=== PATIENT | female | born 1990 | race Caucasian/White ===

== ENCOUNTER 2023-10-04 12:19 | Emergency (ER) | payer OTHER, SELFPAY ==
--- OUTSIDE RECORDS SUMMARY | 2023-10-04 12:23 | XMS REPORT | Continuity of Care Document ---
:1990 Author Organization [facility] t Address [address] [place] [address] Care Team Providers Name Role Phone MARGA COLÓN Primary Care Physician Unavailable Nik Rodas Attending Clinician Unavailable MARGA COLÓN Attending Clinician Unavailable MIKY CHESTER Attending Clinician Unavailable TOOTIE HECK Attending Clinician Unavailable CRYSTAL FABIAN Attending Clinician Unavailable LAB90 Attending Clinician Unavailable ANGEL LANDA Attending Clinician Unavailable CR CERNA I. Attending Clinician Unavailable TATIANA SENA Attending Clinician Unavailable Pranav Pena MD Attending Clinician PRANAV PENA Attending Clinician Unavailable JARON DLAEY Attending Clinician Unavailable MD LISSETTE Attending Clinician Unavailable Lilibeth Attending Clinician Unavailable LUCY NATH Attending Clinician Unavailable PROVIDER, VIDEOVISITNOW Attending Clinician Unavailable GUY KWAN Attending Clinician Unavailable JOSE ANGEL WAN Attending Clinician Unavailable LAB47 Attending Clinician Unavailable RYAN MAGANA Attending Clinician Unavailable Margaret Schaefer Attending Clinician [phone] Nik Rodas Attending Clinician [phone] Conchita Delaney Attending Clinician [phone] Fatou Attending Clinician Unavailable Michael Zuleta Attending Clinician Unavailable Susi Vera Attending Clinician [phone] Cate Randle Attending Clinician Unavailable Gustavo Richardson Attending Clinician [phone] Maria M Patrick Attending Clinician Unavailable Milvia Baird Attending Clinician Unavailable KIMMIE STARKS M.D. Attending Clinician Unavailable JOHN MORTENSEN NP Attending Clinician Unavailable JOSE RAUL RUTHERFORD M.D. Attending Clinician Unavailable NADEEM SMALLWOOD LCSW Attending Clinician Unavailable MICHAEL STYLES M.D. Attending Clinician Unavailable LUÍS DAVILA M.D.|PHD Attending Clinician Unavailable Nik Rodas Admitting Clinician Unavailable PRANAV PENA Admitting Clinician Unavailable Lilibeth Admitting Clinician Unavailable Fatou Admitting Clinician Unavailable KNOW, DOES_NOT Admitting Clinician Unavailable Susi Vera Unavailable [phone] Gustavo Rivas Unavailable [phone] Payers Payer Name Policy Type Policy Number Effective Date Expiration Date S ource [employer]ETNA [facility] 9 [id number] 2022 $30 [id number] BASIC 94 00:00:00 [employer]ET[employer] COMMERCIAL [id number] 2022 OUT OF NETWORK 00:00:00 [employer] [id number] [place] AETNA [id number] 2022 00:00:00 [employer] [place] [id number] [place] Problems Condition Condition Condition Status Onset Resolution Last Treating Co mments Source Name Details Category Date Date Treatment Clinician Date Prediabete Prediabete Disease Active K elsey s s 5-23 Seybold 00:00: - 00 Externa l Ankylosing Ankylosing Disease Active K elsey spondyliti spondyliti 2-08 Se ybold s of s of 00:00: - multiple multiple 00 Pipe And Test Supervisor a sites in sites in l spine spine Sjogren's Sjogren's Disease Active Nilesh sey syndrome syndrome 2-08 Seybol d with with 00:00: - keratoconj keratoconj 00 Ex terna unctivitis unctivitis l sicca sicca Attention Attention Disease Active Nilesh sey deficit deficit 2-08 Seybold hyperactiv hyperactiv 00:00: - ity ity 00 Externa disorder disorder l (ADHD), (ADHD), 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 Class 3 Class 3 Disease Active Valentina severe severe 2-08 Seybold obesity obesity 00:00: - due to due to 00 Externa excess excess l calories calories without without serious serious comorbidit comorbidit y with y with body mass body mass index index (BMI) of (BMI) of 45.0 to 45.0 to 49.9 in 49.9 in adult adult Class 2 Class 2 Disease Active Valentina obesity obesity 2-08 Seybold due to due to 00:00: - excess excess 00 Externa calories calories l without without serious serious comorbidit comorbidit y with y with body mass body mass index index (BMI) of (BMI) of 35.0 to 35.0 to 35.9 in 35.9 in adult adult Sj?marlon's Sj?marlon's Problem Active 2020-11 Azale a syndrome Syndrome 2-01 Orthop e 00:00: dic 00 Sports Medicin e Carpal Carpal Problem Active 2020-11 Ruth tunnel Tunnel 0-07 Orthope syndrome Syndrome 00:00: dic 00 Sports Medicin e Ganglion Ganglion Problem Active 2020-11 Azale a of wrist of Wrist 0-07 Orthop e 00:00: dic 00 Sports Medicin e Radial Radial Problem Active 2020-11 Ruth styloid Styloid 0-07 Orthope tenosynovi Tenosynovi 00:00: di c tis tis 00 Sports Medicin e Ankylosing Ankylosing Problem Active A zalea spondyliti Spondyliti 8-18 Or thope s s 00:00: dic 00 Sports Medicin e Inflammati Inflammati Problem Active Polly whitman on of on of 06-16 Orthope sacroiliac Sacroiliac 00:00: di c joint Joint 00 Sports Medicin e Lumbar Lumbar Problem Active Ruth spondylosi Spondylosi 7-16 Or thope s s 00:00: dic 00 Sports Medicin e Low back Low Back Problem Active Svitlanaomaira a pain Pain 7-16 Orthope 00:00: dic 00 Sports Medicin e Inflammato Inflammato Problem Active Polly whitman ry ry 7-15 Orthope polyarthro Polyarthro 00:00: di c michelle michelle 00 Sports Medicin e Preconcept Condition Active 2021-03-20 Chuy, [facility] ion 4- 23:31:11 Susi Communi counseling 00:00: ty 00 Health Vaginal Condition Active 2021-03-20 Chuy, [facility] odor 4- 23:31:11 Susi Communi 00:00: ty 00 Health ADHD, Condition Active 2021-03-18 Leoz-Karen [facility] UNSPECIFIE 3-03 15:48:40 zo, Comm uni D 00:00: Gustavo ty 00 Health PERSONALIT Condition Active 2021-03-18 Leoz-Karen [facility] Y 3-03 15:48:40 zo, Communi DISORDER, 00:00: Gustavo ty BORDERLINE 00 Health Severe Severe Disease Active Methodi persistent persistent 07-06 asthma asthma 00:00: Hospita with acute with acute 00 l exacerbati exacerbati on on Hypokalemi Hypokalemi Disease Active M ethodi a a 07-06 00:00: Hospita 00 l Lactic Lactic Disease Active Methodi acidosis acidosis 07-06 00:00: Hospita 00 l Leukocytos Leukocytos Disease Active M ethodi is is 07-06 00:00: Hospita 00 l Class 2 Class 2 Disease Active Methodi obesity in obesity in 07-06 adult adult 00:00: Hospita 00 l Hyperglyce Hyperglyce Disease Active M ethodi dali dali 07-06 00:00: Hospita 00 l History of History of Problem Resolve [facility] asthma asthma d Physici ans Panic Panic Problem Active [facility] attack attack Physici ans RACHEL RACHEL Problem Active UT (generaliz (generaliz Ph ysici ed anxiety ed anxiety an s disorder) disorder) Fatigue Fatigue Problem Active [facility] Morbid Morbid Problem Active [facility] obesity obesity Physici ans Hyperlipid Hyperlipid Problem Active U T emia emia Physici ans Morbid Morbid Problem Active [facility] obesity obesity Physici with body with body ans mass index mass index (BMI) of (BMI) of 40.0 to 40.0 to 44.9 in 44.9 in adult adult High High Problem Active UT cholestero cholestero Ph ysici l l ans Nexplanon Nexplanon Problem Active UT in place in place Physic i ans Bipolar Bipolar Problem Active [facility] affective affective Phys ici disorder, disorder, ans current current episode episode hypomanic hypomanic Allergies, Adverse Reactions, Alerts Allergy Allergy Status Severity Reaction(s) Onset Inactive Treating Comm ents Source Name Type Date Date Clinician Codeine Propensi Active Unknown - Univ ers ty to See comments 6-30 ity of adverse 00:00: [place] reaction 00 Medical s Branch Venlafax Propensi Active Hives Univer s ine ty to 6-30 ity of adverse 00:00: [place] reaction 00 Medical s Branch CODEINE DRUG Active Unknown-Cmnt Uni vers INGREDI 6-30 ity of 00:00: [place] 00 Medical Branch VENLAFAX DRUG Active Hives Univers INE INGREDI 6-30 ity of 00:00: [place] 00 Medical Branch Hydrocod Propensi Active Valentina one-Acet ty to 04-11 Seybold aminophe adverse 00:00: - n reaction 00 Externa s l Oxycodon Propensi Active Valentina e-Acetam ty to 04-11 Seybold inophen adverse 00:00: - reaction 00 Externa s l Oxycodon Propensi Active Other Valentina e ty to 05-20 reaction( Seybold adverse 00:00: s): - reaction 00 UNKNOWN Externa s l oxycodon DA Active U UNKNOWN [facility] 05-20 [place] 00:[facility]: [facility] 00 dic Hospita l Venlafax Propensi Active Hives 2020-11 Valentina paul ty to 0-28 Seybold adverse 00:00: - reaction 00 Externa s l Hydrocod Propensi Active Other Valentina young ty to 916 reaction( Seybold adverse 00:00: s): - reaction 00 UNKNOWN Externa s l codeine DA Active U [facility] 08-05 [place] 00:00: Orthope 00 dic Hospita l hydrocod DA Active U [facility] one 08-05 [place] 00:00: Orthope 00 dic Hospita l acetamin DA Active U [facility] ophen 08-05 [place] 00:00: Orthope 00 dic Hospita l codeine DA Active U UNKNOWN [facility] 08-05 [place] 00:00: Orthope 00 dic Hospita l hydrocod DA Active U UNKNOWN [facility] one 08-05 [place] 00:00: Orthope 00 dic Hospita l acetamin DA Active U UNKNOWN [facility] ophen 08-05 [place] 00:00: Orthope 00 dic Hospita l Vicodin Allergy Active Ruth to 7-15 Orthope substanc 00:00: dic e 00 Sports Medicin e Codeine Allergy Active Ruth to 7-15 Orthope substanc 00:00: dic e 00 Sports Medicin e Percocet Allergy Active Ruth to 7-15 Orthope substanc 00:00: dic e 00 Sports Medicin e VICODIN Drug Active High throat [facility] allergy Criticali closeshives 4-29 C ommuni (disorde ty 00:00: ty r) 00 Health PERCOCET Drug Active High severe [facility] allergy Criticali throat 4-29 Commun i (disorde ty closeshives 00:00: ty r) 00 Health CODEINE Drug Active High severe [facility] allergy Criticali throat 4-29 Commun i (disorde ty closeshives 00:00: ty r) 00 Health Codeine Propensi Active Escobar ty to 207 Health adverse 00:00: reaction 00 s to drug Oxycodon Propensi Active Escobar e-Acetam ty to 12-27 Health inophen adverse 00:00: reaction 00 s to drug Hydrocod Propensi Active Escobar one-Acet ty to 12-27 Health aminophe adverse 00:00: n reaction 00 s to drug Codeine Propensi Active Rash 2016-11 Other Valentina ty to 12-10 reaction( Seybold adverse 00:00: s): - reaction 00 Other: Externa s See l CommentsF kami effect Codeine Propensi Active Itching 2016-11 Method i ty to 12-10 st adverse 00:00: Hospita reaction 00 l s to drug Oxycodon Propensi Active Itching 2016-11 Metho di e-Acetam ty to 12-10 st inophen adverse 00:00: Hospita reaction 00 l s to drug Hydrocod Propensi Active 2016-11 Method i one-Acet ty to 12-10 st aminophe adverse 00:00: Hospita n reaction 00 l s to drug codeine drug Active [facility] allergy Physici ans Percocet drug Active UT TABS allergy Physici ans Vicodin drug Active UT TABS allergy Physici ans NO KNOWN Drug Active Univers ALLERGIE Class ity of [facility] Family History Family Member Diagnosis Comments Start Date Stop Date Source Unknown Family Family history of Maternal [facility] Member cardiovascular Relatives disease Unknown Family Family history of Maternal [facility] Member myocardial infarction Relatives Mother Family history of [facility] gallbladder disease Social History Social Habit Start Date Stop Date Quantity Comments Source History SDOH Alcohol Shireen ey Seybold Std Drinks - External History SDOH Alcohol Shireen ey Seybold Binge - External Gender identity Valentina Se ybold - External History SDOH Alcohol Shireen ey Seybold Frequency - External Sexual orientation [facility] History of tobacco Occasional tobacco Denominational use smoker Hospital Education 2022-12-28 2022-12-28 16 Valentina Seybold 00:00:00 00:00:00 - External Tobacco use and 2022-12-28 2022-12-28 Smokeless tobacco Ke andre Seybold exposure 00:00:00 00:00:00 non-user - External time of call 2021-05-14 2021-05-14 05/14/2021 10:59 [facility] 10:59:37 10:59:37 [facility] sexual orientation 2021-03-18 2021-03-18 Heterosexual Lega cy 15:07:59 15:07:59 [facility] social history 2021-03-18 2021-03-18 reviewed today [facility] reviewed E&M 15:07:59 15:07:59 [facility] social history E&M 2021-03-18 2021-03-18 since Leg acy 15:07:59 15:07:59 2016. Mother lives Commun ity in . Close to Health her. Mother is with step father, also good relationship, she has a half brother. 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 Was before until 2018live with , no chldren. 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 Sexual orientation: Heterosexual. patient considered 2021-03-18 2021-03-18 No Legacy to be homeless 15:07:59 15:07:59 [facility] condom use 2021-03-18 2021-03-18 Never [facility] 15:07:59 15:07:59 [facility] total number of 2021-03-18 2021-03-18 [facility] lifetime sexual 15:07:59 15:07:59 [facility] number of sexual 2021-03-18 2021-03-18 Legacy partners in last 15:07:59 15:07:59 Communit y year Health Ever had sexual 2021-03-18 2021-03-18 Yes Legacy intercourse? 15:07:59 15:07:59 [facility] PHQ2 Questionairre 2021-03-18 2021-03-18 [facility] Score 15:07:59 15:07:59 [facility] is there any chance 2021-03-18 2021-03-18 No [place] that you could be 15:07:59 15:07:59 Communi ty ? Health if the patient is 2021-03-18 2021-03-18 No Legacy using/has used a 15:07:59 15:07:59 Communit y vaping item, Health Current, Former, Never Used, Not asked drug use 2021-03-18 2021-03-18 Never [facility] 15:07:59 15:07:59 [facility] alcohol use 2021-03-18 2021-03-18 Never [facility] 15:07:59 15:07:59 [facility] drug use, illicit, 2021-01-20 2021-01-20 daily [facility] frequency 11:10:58 11:10:58 [facility] drug use, illicit, 2021-01-20 2021-01-20 marijuana [facility] drug of choice 11:10:58 11:10:58 [facility] family support 2021-01-20 2021-01-20 Mother lives in [place] 11:10:58 11:10:58 [place]. Close to her. [place] ty Mother is Health with step father, also good relationship, she has a half brother. 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 Was before until 2018 sex at 2021-01-20 2021-01-20 Female [facility] 11:10:58 11:10:58 [facility] home/family 2021-01-20 2021-01-20 live with , [place]er[place] y situation, 11:10:58 11:10:58 no chldren. 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 alcohol use, 2021-01-20 2021-01-20 holidays/special Legacy frequency 11:10:58 11:10:58 occasions only [facility] History of Social 2018-10-07 2018-10-[address] function 00:00:00 00:00:00 Hospital Alcohol intake 2018-07-06 2018-07-06 Current drinker of [facility] 00:00:00 00:00:00 alcohol (finding) Hospita l Alcohol Comment 2017-10-10 2017-10-10 social Denominational 00:00:00 00:00:00 Hospital Sex Ass[birth year] At [birth year] Denominational 00:00:00 00:00:00 Hospital Smoking Status Start Date Stop Date Source Current every day smoker [facility] Tobacco smoking consumption [facility] Medical unknown Branch Never smoked tobacco Valentina Quintanilla old - External Occasional tobacco smoker 2018-07-06 00:00:00 [facility] Medications Ordered Filled Start Stop Current Ordering Indication Dosage Frequency Signature Comments Components Source Medication Medication Date Date Medication? Clinician (SIG) Name Name Albuterol Yes 2{puff} Q.25D Inhale 2 Valentina HFA 108 (90 8-21 puffs into Se ybold Base) 14:41: the lungs - MCG/ACT IN 56 every 6 Pipe And Test Supervisor a AERS hours as l needed for shortness of breath. Amphetamine 2022-0 Yes [id number] 20mg Take 1 Valentina -Dextroamph 8-21 tablet (20 Se ybold etamine 20 00:00: mg total) - MG oral 00 by mouth 2 Pipe And Test Supervisor a Tablet times l daily. Norelgestro 2022-0 Yes 1{patch Place 1 Valentina min-Eth 7-24 } patch onto Seybol d Estradiol 00:00: the skin - 150-35 00 once a Externa MCG/24HR week (for l transdermal continuous PATCH therapy WEEKLY for menstrual irregulari ty) Cyclobenzap 2022-0 Yes [id number] 5mg Q.[id number] Take 1 Valentina rine HCl 5 7-24 [id number] tablet (5 Seybold MG oral 00:00: 3D mg total) - Tablet 00 by mouth 3 Externa times l daily as needed for muscle spasms Montelukast 2022-0 Yes [id number] 10mg Take 1 Valentina (SINGULAIR) 7-24 tablet (10 Se ybold 10 MG oral 00:00: mg total) - Tablet 00 by mouth Externa tablet nightly l Amphetamine 2022-0 2023- No [id number] 20mg Take 1 Valentina -Dextroamph 7-24 08-21 tablet (20 S eybold etamine 20 00:00: 00:00 mg total) - MG oral 00 :00 by mouth Externa Tablet daily l ibuprofen 2022-0 Yes [id number] 600mg Take 1 Univers 600 mg 6-30 [id number] tablet by ity of tablet 00:00: mouth [place] 00 every 6 Medical (six) Branch hours as needed for Pain (scale 4-6). Amphetamine 2022-0 Yes [id number] 20mg Take 1 Valentina -Dextroamph 6-20 tablet (20 Se ybold etamine 20 00:00: mg total) - MG oral 00 by mouth Externa Tablet daily l Norelgestro 2022-0 Yes 1{patch Place 1 Valentina min-Eth 5-30 } patch onto Seybol d Estradiol 00:00: the skin - 150-35 00 once a Externa MCG/24HR week (for l transdermal continuous PATCH therapy WEEKLY for menstrual irregulari ty) Ketorolac 2023-0 2023- No [id number] 60mg Shireen ey Tromethamin 04-11- Seybold e (TORADOL) 16:45: 16:39 - 60 mg/2 mL 00 :00 Externa l Ketorolac 2022- No [id number] 60mg 60 mg, Ke lsey Tromethamin 04-11 intramuscu S eybold e (TORADOL) 16:45: 16:39 lar, ONCE, - 60 mg/2 mL 00 :00 On Tue Externa 04/11/23 at l 1145, For 1 dose Amphetamine 2022- No 20mg Take 2 Nilesh sey -Dextroamph -11 04- tablets Seyb old etamine 10 14:44: 00:00 (20 mg - MG oral 13 :00 total) by Externa Tablet mouth l daily Amphetamine Yes 20mg Take 2 Shireen ey -Dextroamph 5-23 tablets Seybo ld etamine 10 11:28: (20 mg - MG oral 03 total) by Externa Tablet mouth l daily Amphetamine Yes [id number] 15mg Take 1 Valentina -Dextroamph 5-23 tablet (15 Se ybold etamine 15 00:00: mg total) - MG oral 00 by mouth Externa Tablet daily l Amphetamine 2022- No [id number] 20mg Take 1 Valentina -Dextroamph 5-23 -23 tablet (20 S eybold etamine 00:00: 00:00 mg total) - (ADDERALL, 00 :00 by mouth Exter na 20MG,) 20 daily l MG oral Tablet Montelukast Yes [id number] 10mg Take 1 Valentina (SINGULAIR) 5-08 tablet (10 Se ybold 10 MG oral 00:00: mg total) - Tablet 00 by mouth Externa tablet nightly l methylPREDN Yes [id number] Take 1 garrett Valentina ISolone 4 5-08 by mouth Seybol d MG oral 00:00: See Admin - Tablet 00 Instructio Externa Therapy ns Use as l Pack directed Albuterol Yes [id number] 2{puff} Q.25D Inhale 2 Valentina HFA 108 (90 5-08 puffs into Se ybold Base) 00:00: the lungs - MCG/ACT IN 00 every 6 Pipe And Test Supervisor a AERS hours as l needed for wheezing Montelukast 2022-0 Yes [id number] 10mg Take 1 Valentina (SINGULAIR) 5-08 tablet (10 Se ybold 10 MG oral 00:00: mg total) - Tablet 00 by mouth Externa tablet nightly l Albuterol 2022-0 Yes [id number] 2{puff} Q.25D Inhale 2 Valentina HFA 108 (90 5-08 puffs into Se ybold Base) 00:00: the lungs - MCG/ACT IN 00 every 6 Pipe And Test Supervisor a AERS hours as l needed for wheezing Norelgestro 2022-0 Yes 1{patch Place 1 Valentina min-Eth 5-08 } patch onto Seybol d Estradiol 00:00: the skin - 150-35 00 once a Externa MCG/24HR week l transdermal PATCH WEEKLY Montelukast 2022-0 Yes [id number] 10mg Take 1 Valentina (SINGULAIR) 5-08 tablet (10 Se ybold 10 MG oral 00:00: mg total) - Tablet 00 by mouth Externa tablet nightly l Norelgestro 2022-0 Yes 1{patch Place 1 Valentina min-Eth 5-08 } patch onto Seybol d Estradiol 00:00: the skin - 150-35 00 once a Externa MCG/24HR week l transdermal PATCH WEEKLY Montelukast 2022-0 Yes [id number] 10mg Take 1 Valentina (SINGULAIR) 5-08 tablet (10 Se ybold 10 MG oral 00:00: mg total) - Tablet 00 by mouth Externa tablet nightly l Norelgestro 2022-0 Yes 1{patch Place 1 Valentina min-Eth 5-08 } patch onto Seybol d Estradiol 00:00: the skin - 150-35 00 once a Externa MCG/24HR week l transdermal PATCH WEEKLY Montelukast 2022-0 Yes [id number] 10mg Take 1 Valentina (SINGULAIR) 5-08 tablet (10 Se ybold 10 MG oral 00:00: mg total) - Tablet 00 by mouth Externa tablet nightly l methylPREDN 2022-0 2023- No [id number] Take 1 garrett Valentina ISolone 4 5-08 05- by mouth Seybo ld MG oral 00:00: 00:00 See Admin - Tablet 00 :00 Instructio Externa Therapy ns Use as l Pack directed Albuterol 2022-0 3- No [id number] 2{puff} Q.25D Inhale 2 Valentina HFA 108 (90 03-27 puffs into S eybold Base) 00:00: 00:00 the lungs - MCG/ACT IN 00 :00 every 6 Pipe And Test Supervisor a AERS hours as l needed for wheezing Cyclobenzap 3-0 Yes [id number] 5mg Q.[id number] Take 1 Valentina rine HCl 5 4-13 [id number] tablet (5 Seybold MG oral 00:00: 3D mg total) - Tablet 00 by mouth 3 Externa times l daily as needed for muscle spasms Norethindro 3-0 Yes [id number] 1{tbl} Take 1 Valentina ne 4-13 tablet by Seybold Acet-Ethiny 00:00: mouth - l Est 00 daily Externa (Loestrin l 12/09, ,) 1-20 MG-MCG oral Tablet Cyclobenzap 2022-0 Yes [id number] 5mg Q.[id number] Take 1 Valentina rine HCl 5 4-13 [id number] tablet (5 Seybold MG oral 00:00: 3D mg total) - Tablet 00 by mouth 3 Externa times l daily as needed for muscle spasms Cyclobenzap 2023-0 Yes [id number] 5mg Q.[id number] Take 1 Valentina rine HCl 5 4-13 [id number] tablet (5 Seybold MG oral 00:00: 3D mg total) - Tablet 00 by mouth 3 Externa times l daily as needed for muscle spasms Cyclobenzap 2023-0 Yes [id number] 5mg Q.[id number] Take 1 Valentina rine HCl 5 4-13 [id number] tablet (5 Seybold MG oral 00:00: 3D mg total) - Tablet 00 by mouth 3 Externa times l daily as needed for muscle spasms Cyclobenzap 2023-0 Yes [id number] 5mg Q.[id number] Take 1 Valentina rine HCl 5 4-13 [id number] tablet (5 Seybold MG oral 00:00: 3D mg total) - Tablet 00 by mouth 3 Externa times l daily as needed for muscle spasms Cyclobenzap 2023-0 Yes [id number] 5mg Q.[id number] Take 1 Valentina rine HCl 5 4-13 [id number] tablet (5 Seybold MG oral 00:00: 3D mg total) - Tablet 00 by mouth 3 Externa times l daily as needed for muscle spasms Norethindro 2023-0 Yes [id number] 1{tbl} Take 1 Valentina ne 4-13 tablet by Seybold Acet-Ethiny 00:00: mouth - l Est 00 daily Externa (Loestrin l ,) 1-20 MG-MCG oral Tablet Cyclobenzap 3-0 Yes [id number] 5mg Q.[id number] Take 1 Valentina reynae HCl 5 4-13 [id number] tablet (5 Seybold MG oral 00:00: 3D mg total) - Tablet 00 by mouth 3 Externa times l daily as needed for muscle spasms Norethindro 2023-0 Yes [id number] 1{tbl} Take 1 Valentina engle 4-13 tablet by Seybold Acet-Ethiny 00:00: mouth - l Est 00 daily Externa (Loestrin l ,) 1-20 MG-MCG oral Tablet Norethindro 3-0 2023- No [id number] 1{tbl} Take 1 Valentina engle 4-13 05-08 tablet by Seybold Acet-Ethiny 00:00: 00:00 mouth - l Est 00 :00 daily Externa (Loestrin l ,) 1-20 MG-MCG oral Tablet Secukinumab 3-0 Yes [id number] Inject K elsey (Cosentyx 4-03 150mg q Seybold Sensoready 00:00: week x 5 - Pen) 150 00 weeks, Externa MG/ML then q 4 l subcutaneou weeks s Solution after that Auto-inject or Secukinumab 2022-0 Yes [id number] Inject K elsey (Cosentyx 4-03 150mg q Seybold Sensoready 00:00: week x 5 - Pen) 150 00 weeks, Externa MG/ML then q 4 l subcutaneou weeks s Solution after that Auto-inject or Secukinumab 2023-0 Yes [id number] Inject Marissa branch (Cosentyx 4-03 150mg q Seybold Sensoready 00:00: week x 5 - Pen) 150 00 weeks, Externa MG/ML then q 4 l subcutaneou weeks s Solution after that Auto-inject or Secukinumab 2023-0 Yes [id number] Inject Marissa branch (Cosentyx 4-03 150mg q Seybold Sensoready 00:00: week x 5 - Pen) 150 00 weeks, Externa MG/ML then q 4 l subcutaneou weeks s Solution after that Auto-inject or Secukinumab 2023-0 Yes [id number] Inject Marissa branch (Cosentyx 4-03 150mg q Seybold Sensoready 00:00: week x 5 - Pen) 150 00 weeks, Externa MG/ML then q 4 l subcutaneou weeks s Solution after that Auto-inject or Secukinumab 2023-0 Yes [id number] Inject Marissa branch (Cosentyx 4-03 150mg q Seybold Sensoready 00:00: week x 5 - Pen) 150 00 weeks, Externa MG/ML then q 4 l subcutaneou weeks s Solution after that Auto-inject or Secukinumab 2023-0 Yes [id number] Inject Marissa branch (Cosentyx 4-03 150mg q Seybold Sensoready 00:00: week x 5 - Pen) 150 00 weeks, Externa MG/ML then q 4 l subcutaneou weeks s Solution after that Auto-inject or Secukinumab 2023-0 Yes [id number] Inject Marissa branch (Cosentyx 4-03 150mg q Seybold Sensoready 00:00: week x 5 - Pen) 150 00 weeks, Externa MG/ML then q 4 l subcutaneou weeks s Solution after that Auto-inject or Ketorolac 2022-0 3- No [id number] 60mg Shireen ey Tromethamin 01-10 Seybold e (TORADOL) 22:00: 22:06 - 60 mg/2 mL 00 :00 Externa l Ketorolac 202-0 2022- No [id number] 60mg 60 mg, Ke lsey Tromethamin 01-10 intramuscu S eybold e (TORADOL) 22:00: 22:06 lar, ONCE, - 60 mg/2 mL 00 :00 On Tue Externa 01/10/23 at l 1600, For 1 dose Amphetamine 2022-0 Yes 10mg Take 10 mg Valentina -Dextroamph 2-21 by mouth Seyb old etamine 10 15:32: daily - MG oral 43 Externa Tablet l Amphetamine 2022-0 Yes 10mg Take 10 mg Valentina -Dextroamph 2-21 by mouth Seyb old etamine 10 15:32: daily - MG oral 43 Externa Tablet l Amphetamine 2022-0 Yes 10mg Take 10 mg Valentina -Dextroamph 2-21 by mouth Seyb old etamine 10 15:32: daily - MG oral 43 Externa Tablet l Amphetamine 2022-0 Yes 10mg Take 10 mg Valentina -Dextroamph 2-21 by mouth Seyb old etamine 10 15:32: daily - MG oral 43 Externa Tablet l Amphetamine 2022-0 Yes 10mg Take 10 mg Valentina -Dextroamph 2-21 by mouth yb old etamine 10 15:32: daily - MG oral 43 Externa Tablet l Cyclobenzap 2022-0 Yes [id number] 5mg [id number] Take 1 Valentina rine HCl 5 2-21 [id number] tablet (5 Seybold MG oral 00:00: 3D mg total) - Tablet 00 by mouth 3 Externa times l daily as needed for muscle spasms Amphetamine 2022-0 Yes 10mg Take 10 mg Valentina -Dextroamph 2-08 by mouth yb old etamine 10 09:42: daily - MG oral 50 Externa Tablet l Amphetamine 2022-0 Yes 10mg Take 10 mg Valentina -Dextroamph 2-08 by mouth Seyb old etamine 10 09:42: daily - MG oral 50 Externa Tablet l Amphetamine 3-0 2023- No 20mg Take 20 mg Valentina -Dextroamph 2-08 02-08 by mouth Sey bold etamine 20 09:42: 00:00 daily PT - MG oral 37 :00 TAKES HALF [employer] a Tablet THE TABLET l ONCE A DAY Humira Pen 2022-0 Yes .4{each Inject 0.4 Valentina 40 MG/0.4ML 12-12 } each into Sey bold subcutaneou 00:00: the skin - s 00 once a Externa Pen-injecto month l r Kit (Citrate-fr ee) Humira Pen Yes .4{each Inject 0.4 Valentina 40 MG/0.4ML 1-23 } each into Sey bold subcutaneou 00:00: the skin - s 00 once a Externa Pen-injecto month l r Kit (Citrate-fr ee) Humira Pen Yes .4{each Inject 0.4 Valentina 40 MG/0.4ML 1-23 } each into Sey bold subcutaneou 00:00: the skin - s 00 every Externa Pen-injecto other week l r Kit (Citrate-fr ee) Humira(CF) Humira(CF) 2021- No Humira(CF) Ruth Pen 40 Pen 40 8- 08-14 Pen 40 [facility] mg/0.4 mL mg/0.4 mL 00:00: 00:00 mg/0.4 mL dic subcutaneou subcutaneou 00 :00 subcutaneo Sports s kit s kit us kit Medicin Inject 1 Inject 1 Inject 1 e pen pen pen injector injector injector subcutaneou subcutaneou subcutaneo sly as sly as usly as directed directed directed Inject 1 Inject 1 Inject 1 pen pen pen injector SQ injector SQ injector every other every other SQ every week week other week Humira(CF) Humira(CF) 2021- No Humira(CF) Ruth Pen 40 Pen 40 818 08-14 Pen 40 Orth[facility] mg/0.4 mL mg/0.4 mL 00:00: 00:00 mg/0.4 mL dic subcutaneou subcutaneou 00 :00 subcutaneo Sports s kit s kit us kit Medicin Inject 1 Inject 1 Inject 1 e pen pen pen injector injector injector subcutaneou subcutaneou subcutaneo sly as sly as usly as directed directed directed Inject 1 Inject 1 Inject 1 pen pen pen injector SQ injector SQ injector every other every other SQ every week week other week Humira(CF) Humira(CF) 2021- No Humira(CF) Ruth Pen 40 Pen 40 8-18 08-14 Pen 40 [facility] mg/0.4 mL mg/0.4 mL 00:00: 00:00 mg/0.4 mL dic subcutaneou subcutaneou 00 :00 subcutaneo Sports s kit s kit us kit Medicin Inject 1 Inject 1 Inject 1 e pen pen pen injector injector injector subcutaneou subcutaneou subcutaneo sly as sly as usly as directed directed directed Inject 1 Inject 1 Inject 1 pen pen pen injector SQ injector SQ injector every other every other SQ every week week other week (METRONIDAZ Yes Susi 1 2xD 1 tablet [facility]) 500 MG 502 Speed by mouth C ommuni TABS 00:00: twice ty 00 daily for Health 7 days ALBUTERAL Yes as needed [facility] INHALOR 03-18 Communi 00:00: ty 00 Health PROZAC 40MG Yes 1 a day [facility] 03-18 [facility] 00:00: ty 00 Health ADDERAL IR Yes 1 a day Lega cy 20 MG 03-18 Communi 00:00: ty 00 Health ADDERALL Yes 1 a day [facility] EXTENDED 03-18 [facility]i RELEASE 20 00:00: ty MG 00 Health traZODone Yes 100mg QD Take 100 Met [facility] (DESYREL) 8-[address] 100 MG 13:48: mouth [facility]osp[facility] tablet 54 nightly. l FLUoxetine Yes 40mg QD Take 40 mg M ethodi (PROzac) 40 8-[address] MG capsule 13:48: daily. Hospi ta 54 l carisoprodo Yes 350mg Take 350 M ethodi l (SOMA) 8-[address] 350 MG 13:48: mouth. Hospita tablet 54 l diazePAM Yes 10mg Q8H Take 10 mg Met [facility] (VALIUM) 5 8-[address] MG tablet 13:48: every 8 Hospi ta 54 (eight) l hours as needed for anxiety. ALPRAZolam ALPRAZolam 2016-11 Yes MOHAMMED 1 Q0.5D TAKE 1 UT 1 MG Oral 1 MG Oral 2-22 AHMED M.D. TABLET Physici Tablet Tablet 00:00: TWICE ans 00 DAILY ALPRAZolam ALPRAZolam 2016-11 Yes MOHAMMED TAKE 1 UT 0.5 MG Oral 0.5 MG Oral 2- AHMED M.D. TABLET Physici Tablet Tablet 00:00: DAILY ans 00 NEEDED FOR BREAK THROUGH ANXIETY ONLY busPIRone busPIRone Yes MOHAMMED Q0.3333D TAKE 1 UT HCl - 10 MG HCl - 10 MG 6- AHMED M.D. TABLET 3 Physici Oral Tablet Oral Tablet 00:00: TIMES ans 00 DAILY. QUEtiapine QUEtiapine Yes MOHAMMED TAKE 1 UT Fumarate Fumarate 5-09 AHMED M.D. TABLET BY Physici 300 MG Oral 300 MG Oral 00:00: MOUTH AT ans Tablet Tablet 00 BEDTIME Adderall XR Adderall XR No Adderall Ruth 20 mg 20 mg XR 20 mg [facility] capsule,ext capsule,ext capsule,ex dic ended ended tended Sports release release release Medici n TAKE 1 TAKE 1 TAKE 1 e CAPSULE BY CAPSULE BY CAPSULE BY MOUTH DAILY MOUTH DAILY MOUTH DAILY dextroamphe dextroamphe No dextroamph Ruth tamine-amph tamine-amph etamine-am Orthope etamine 20 etamine 20 phetamine dic mg tablet mg tablet 20 mg Spor ts TAKE 1 TAKE 1 tablet Medicin TABLET BY TABLET BY TAKE 1 e MOUTH TWICE MOUTH TWICE TABLET BY DAILY DAILY MOUTH TWICE DAILY diazepam 10 diazepam 10 No diazepam Ruth mg tablet mg tablet 10 mg Orth ope tablet dic Sports Medicin e meloxicam meloxicam No meloxicam Ruth 7.5 mg 7.5 mg 7.5 mg Orth[facility] tablet TAKE tablet TAKE tablet dic 1 TABLET BY 1 TABLET BY TAKE 1 Sports MOUTH TWICE MOUTH TWICE TABLET BY Medicin DAILY DAILY MOUTH e TWICE DAILY montelukast montelukast No montelukas Ruth 10 mg 10 mg t 10 mg Orth[facility] tablet tablet tablet dic Sports Medicin e prednisolon prednisolon No prednisolo Ruth e acetate 1 e acetate 1 ne acetate Orthope % eye % eye 1 % eye dic drops,suspe drops,suspe drops,susp Sports nsion nsion ension Medicin e Symbicort Symbicort No Symbicort Ruth 160 mcg-4.5 160 mcg-4.5 160 O rthope mcg/actuati mcg/actuati mcg-4.5 dic on HFA on HFA mcg/actuat Sport s aerosol aerosol ion HFA Medici n inhaler inhaler aerosol e inhaler tizanidine tizanidine No tizanidine Ruth 4 mg tablet 4 mg tablet 4 mg O rthope tablet dic Sports Medicin e tramadol 50 tramadol 50 No tramadol Ruth mg tablet mg tablet 50 mg Orth ope TAKE 1 TAKE 1 tablet dic TABLET BY TABLET BY TAKE 1 Spo rts MOUTH FOUR MOUTH FOUR TABLET BY Medicin TIMES DAILY TIMES DAILY MOUTH FOUR e NEEDED NEEDED TIMES FOR BACK FOR BACK DAILY PAIN PAIN NEEDED FOR BACK PAIN Adderall XR Adderall XR No Adderall Ruth 20 mg 20 mg XR 20 mg Orth[facility] capsule,ext capsule,ext capsule,ex dic ended ended tended Sports release release release Medici n TAKE 1 TAKE 1 TAKE 1 e CAPSULE BY CAPSULE BY CAPSULE BY MOUTH DAILY MOUTH DAILY MOUTH DAILY dextroamphe dextroamphe No dextroamph Ruth tamine-amph tamine-amph etamine-am Orthope etamine 20 etamine 20 phetamine dic mg tablet mg tablet 20 mg Spor ts TAKE 1 TAKE 1 tablet Medicin TABLET BY TABLET BY TAKE 1 e MOUTH TWICE MOUTH TWICE TABLET BY DAILY DAILY MOUTH TWICE DAILY diazepam 10 diazepam 10 No diazepam Ruth mg tablet mg tablet 10 mg Orth ope tablet dic Sports Medicin e meloxicam meloxicam No meloxicam Ruth 7.5 mg 7.5 mg 7.5 mg Orth[facility] tablet TAKE tablet TAKE tablet dic 1 TABLET BY 1 TABLET BY TAKE 1 Sports MOUTH TWICE MOUTH TWICE TABLET BY Medicin DAILY DAILY MOUTH e TWICE DAILY montelukast montelukast No montelukas Ruth 10 mg 10 mg t 10 mg Orth[facility] tablet tablet tablet dic Sports Medicin e prednisolon prednisolon No prednisolo Ruth e acetate 1 e acetate 1 ne acetate Orth[facility] % eye % eye 1 % eye dic drops,suspe drops,suspe drops,susp Sports nsion nsion ension Medicin e Symbicort Symbicort No Symbicort Ruth 160 mcg-4.5 160 mcg-4.5 160 O rthope mcg/actuati mcg/actuati mcg-4.5 dic on HFA on HFA mcg/actuat Sport s aerosol aerosol ion HFA Medici n inhaler inhaler aerosol e inhaler tizanidine tizanidine No tizanidine Ruth 4 mg tablet 4 mg tablet 4 mg O rthope tablet dic Sports Medicin e tramadol 50 tramadol 50 No tramadol Ruth mg tablet mg tablet 50 mg Orth ope TAKE 1 TAKE 1 tablet dic TABLET BY TABLET BY TAKE 1 Spo rts MOUTH FOUR MOUTH FOUR TABLET BY Medicin TIMES DAILY TIMES DAILY MOUTH FOUR e NEEDED NEEDED TIMES FOR BACK FOR BACK DAILY PAIN PAIN NEEDED FOR BACK PAIN Adderall XR Adderall XR No Adderall Ruth 20 mg 20 mg XR 20 mg Orth[facility] capsule,ext capsule,ext capsule,ex dic ended ended tended Sports release release release Medici n TAKE 1 TAKE 1 TAKE 1 e CAPSULE BY CAPSULE BY CAPSULE BY MOUTH DAILY MOUTH DAILY MOUTH DAILY dextroamphe dextroamphe No dextroamph Ruth tamine-amph tamine-amph etamine-am Orthope etamine 20 etamine 20 phetamine dic mg tablet mg tablet 20 mg Spor ts TAKE 1 TAKE 1 tablet Medicin TABLET BY TABLET BY TAKE 1 e MOUTH TWICE MOUTH TWICE TABLET BY DAILY DAILY MOUTH TWICE DAILY diazepam 10 diazepam 10 No diazepam Ruth mg tablet mg tablet 10 mg Orth ope tablet dic Sports Medicin e meloxicam meloxicam No meloxicam Ruth 7.5 mg 7.5 mg 7.5 mg Orth[facility] tablet TAKE tablet TAKE tablet dic 1 TABLET BY 1 TABLET BY TAKE 1 Sports MOUTH TWICE MOUTH TWICE TABLET BY Medicin DAILY DAILY MOUTH e TWICE DAILY montelukast montelukast No montelukas Ruth 10 mg 10 mg t 10 mg Orthope tablet tablet tablet dic Sports Medicin e prednisolon prednisolon No prednisolo Ruth e acetate 1 e acetate 1 ne acetate Orthope % eye % eye 1 % eye dic drops,suspe drops,suspe drops,susp Sports nsion nsion ension Medicin e No Aza ruddy Vitamins Vitamins Vitamins Ort hope dic Sports Medicin e Symbicort Symbicort No Symbicort Ruth 160 mcg-4.5 160 mcg-4.5 160 O rthope mcg/actuati mcg/actuati mcg-4.5 dic on HFA on HFA mcg/actuat Sport s aerosol aerosol ion HFA Medici n inhaler inhaler aerosol e inhaler tizanidine tizanidine No tizanidine Ruth 4 mg tablet 4 mg tablet 4 mg O rthope tablet dic Sports Medicin e tramadol 50 tramadol 50 No tramadol Ruth mg tablet mg tablet 50 mg Orth ope TAKE 1 TAKE 1 tablet dic TABLET BY TABLET BY TAKE 1 Spo rts MOUTH FOUR MOUTH FOUR TABLET BY Medicin TIMES DAILY TIMES DAILY MOUTH FOUR e NEEDED NEEDED TIMES FOR BACK FOR BACK DAILY PAIN PAIN NEEDED FOR BACK PAIN Vital Signs Vital Name Observation Time Observation Value Comments Source Systolic blood 2023-07-10 140 mm[Hg] Valentina Horn d - pressure 19:10:00 External Diastolic blood 2023-07-10 85 mm[Hg] Valentina Nava ld - pressure 19:10:00 External Heart rate 2023-07-10 73 /min Valentina Guajardo - 19:10:00 External Body temperature 2023-07-10 36.61 Joanne Valentina Quintanilla old - 19:10:00 External Respiratory rate 2023-07-10 15 /min Valentina Quintanilla [facility] - 19:10:00 External Body height 2023-07-10 165.1 cm Valentina Guajardo - 19:10:00 External Body weight 2023-07-10 97.977 kg Valentina Guajardo - 19:10:00 External BMI 2023-07-10 35.94 kg/m2 Valentina Guajardo - 19:10:00 External Oxygen saturation 2023-07-10 99 /min Valentina Gordon [facility] - in Arterial blood 19:10:00 External by Pulse oximetry Systolic blood 2023-05-20 189 mm[Hg] erp aware, pt [place] [facility] f pressure 04:40:00 reports pain, [facility] denies ordered Branch medications at this time Diastolic blood 2023-05-20 112 mm[Hg] erp aware, pt [facility] pressure 04:40:00 reports pain, [facility] denies ordered Branch medications at this time Heart rate 2023-05-20 92 /min [facility] 04:40:00 [facility] Respiratory rate 2023-05-20 18 /min [facility] 04:40:00 [facility] Oxygen saturation 2023-05-20 94 /min University in Arterial blood 04:40:00 [facility] lo by Pulse oximetry Branch Body temperature 2023-05-20 37.22 Jo[facility] 01:46:00 [facility] Body height 2023-05-20 165.1 cm [facility] :46:00 [facility] Body weight 2023-05-20 107.502 kg [facility] :46:00 [facility] BMI 2023-05-20 39.44 kg/m2 [facility] :46:00 [facility] Systolic blood 2023-05-19 132 mm[Hg] Valentina Seybol d - pressure 20:20:00 External Diastolic blood 2023-05-19 80 mm[Hg] Valentina Seybo ld - pressure 20:20:00 External Heart rate 2023-05-19 78 /min Valentina Seybold - 20:20:00 External Body height 2023-05-19 165.1 cm Valentina Seybold - 20:20:00 External Body weight 2023-05-19 107.502 kg Valentina Seybold - 20:20:00 External BMI 2023-05-19 39.44 kg/m2 Valentina Seybold - 20:20:00 External Systolic blood 2023-04-11 167 mm[Hg] Valentina Seybol d - pressure 19:38:00 External Diastolic blood 2023-04-11 105 mm[Hg] Valentina Seybo ld - pressure 19:38:00 External Heart rate 2023-04-11 97 /min Valentina Seybold - 19:38:00 External Body temperature 2023-04-11 36.56 Joanne Valentina Acevesyb old - 19:38:00 External Respiratory rate 2023-04-11 19 /min Valentina Acevesyb old - 19:38:00 External Body height 2023-04-11 167.6 cm Valentina Seybold - 19:38:00 External Body weight 2023-04-11 109.77 kg Valentina Seybold - 19:38:00 External BMI 2023-04-11 39.06 kg/m2 Valentina Seybold - 19:38:00 External Oxygen saturation 2023-04-11 99 /min Valentina Gordon bold - in Arterial blood 19:38:00 External by Pulse oximetry Systolic blood 2023-04-11 148 mm[Hg] Valentina Seybol d - pressure 16:40:00 External Diastolic blood 2023-04-11 94 mm[Hg] Valentian Seybo ld - pressure 16:40:00 External Heart rate 2023-04-11 84 /min Valentina Seybold - 16:40:00 External Respiratory rate 2023-04-11 16 /min Valentina Seyb old - 16:40:00 External Body height 2023-04-11 167.6 cm Valentina Acevesybold - 16:40:00 External Body weight 2023-04-11 109.77 kg Valentina Acevesybold - 16:40:00 External BMI 2023-04-11 39.06 kg/m2 Valentina Seybold - 16:40:00 External Systolic blood 2023-01-10 118 mm[Hg] Valentina Seybol d - pressure 21:30:00 External Diastolic blood 2023-01-10 78 mm[Hg] Valentina Seybo ld - pressure 21:30:00 External Heart rate 2023-01-10 84 /min Valentina Acevesybold - 21:30:00 External Body temperature 2023-01-10 36.61 Joanne Valentina Acevesyb old - :30:00 External Respiratory rate 2023-01-10 16 /min Valentina Acevesyb old - 21:30:00 External Body height 2023-01-10 167.6 cm Valentina Acevesybold - 21:30:00 External Body weight 2023-01-10 116.121 kg Valentina Acevesybold - 21:30:00 External BMI 2023-01-10 41.32 kg/m2 Valentina Acevesybold - 21:30:00 External Systolic blood 2022-12-28 124 mm[Hg] Valentina Seybol d - pressure 15:22:00 External Diastolic blood 2022-12-28 85 mm[Hg] Valentina Seybo ld - pressure 15:22:00 External Heart rate 2022-12-28 72 /min Valentina Seybold - 15:22:00 External Body temperature 2022-12-28 36.44 Joanne Valentina Acevesyb old - 15:22:00 External Respiratory rate 2022-12-28 14 /min Valentina Seyb old - 15:22:00 External Body height 2022-12-28 162.6 cm Valentina Seybold - 15:22:00 External Body weight 2022-12-28 119.75 kg Valentina Seybold - 15:22:00 External BMI 2022-12-28 45.32 kg/m2 Valentina Bennett - 15:22:00 External Oxygen saturation 2022-12-28 99 /min Valentina Gordon david - in Arterial blood 15:22:00 External by Pulse oximetry BP Diastolic 2022-05-26 77 mm[Hg] Ruth 00:00:00 [facility] Height 2022-05-26 65 [in_i] Ruth 00:00:00 [facility] BMI (Body Mass 2022-05-26 42.6 kg/m2 Ruth Index) 00:00:00 [facility] BP Systolic 2022-05-26 114 mm[Hg] Ruth 00:00:00 [facility] Body Weight 2022-05-26 256.2 [lb_av] Ruth 00:00:00 [facility] Height 2022-05-09 65 [in_i] Ruth 00:00:00 [facility] BMI (Body Mass 2022-05-09 40.8 kg/m2 Ruth Index) 00:00:00 [facility] Body Weight 2022-05-09 245 [lb_av] Ruth 00:00:00 [facility] height in 2021-03-18 165.10 cm [facility] centimeters E&M 15:07:59 Health temperature E&M 2021-03-18 98.6 [degF] [facility] 15:07:59 Health pulse rate 2021-03-18 69 /min [facility] 15:07:59 Health blood pressure, 2021-03-18 90 mm[Hg] [facility] diastolic 15:07:59 Health blood pressure, 2021-03-18 137 mm[Hg] [facility] systolic 15:07:59 Health temperature site 2021-03-18 oral [facility] 15:07:59 Health oxygen saturation, 2021-03-18 98 /min [facility] oximetry 15:07:59 Health weight E&M 2021-03-18 230 [lb_av] [facility] 15:07:59 Health weight in 2021-03-18 104.55 kg [facility] kilograms E&M 15:07:59 Health BP Systolic 2017-11-10 129 mm[Hg] Location: [facility] 09:23:00 Position: Sitting BP Diastolic 2017-11-10 75 mm[Hg] Location: [facility] 09:23:00 Position: Sitting Height 2017-11-10 65 [in_us] [facility] 09:23:00 Weight 2017-11-10 250.5 [lb_av] [facility] 09:23:00 Body Mass Index 2017-11-10 41.69 kg/m2 [facility] Calculated 09:23:00 Temperature 2017-11-10 98.2 [degF] Method: Oral [facility] 09:23:00 Heart Rate 2017-11-10 63 /min [facility] 09:23:00 Respiration Rate 2017-11-10 18 /min Quality: Normal [facility] 09:23:00 O2 SAT 2017-11-10 98 % Source: RA [facility] 09:23:00 Procedures Procedure Date / Time Performing Clinician Source Performed XR ANKLE 3+ VW LEFT 2023-05-20 02:35:34 Pranav Pena [facility] XR FOOT 3+ VW LEFT 2023-05-20 02:35:34 Pranav Pena [facility] ASSIGNMENT OF BENEFITS 2023-05-20 02:32:52 Doctor Unassigned, [facility] Name Medical Branch NOTICE OF PRIVACY 2023-05-20 01:47:54 Doctor Unassigned, [facility] PRACTICES [facility] CONSENT/REFUSAL FOR 2023-05-20 01:47:09 Doctor Unassigned, [facility] DIAGNOSIS AND TREATMENT [facility] Section 2022-03-20 00:00:00 [facility] Diagnostic evaluation with 2021-01-27 14:42:41 Magnus Rivas [facility] medical - [id number] [facility] Urine Drug Qwagqt-Dw-Iislh 2021-01-20 12:06:58 Magnus Rivas [facility] Cholecystectomy [facility] Tonsillectomy and [facility] dic Adenoidectomy Sports Medicine Extraction of [place] Tooth [facility] History of Tonsillectomy [facility] With Adenoidectomy History [facility] Gallbladder [facility] History of Anterior [facility] cruciate ligament repair Plan of Care Planned Activity Planned Date Details Comments Source Future Scheduled Test 2023-10-03 COVID-19 [facility]ACCINE (#[facility] 10:06:33 [code = COVID-19 VACCINE (#1)] Future Scheduled Test 2023-10-03 Screening for [facility] 10:06:33 malignant neoplasm of cervix (procedure) [code = 893055213] Future Scheduled Test 2023-10-03 INFLUENZA VACCINE [facility] 10:06:33 (#1) [code = INFLUENZA VACCINE (#1)] Future Scheduled Test 2023-07-21 IMM Influenza [facility] 00:00:00 Seasonal (>/= 19 yrs) [code = IMM Influenza Seasonal (>/= 19 yrs)] Diagnostic Test 2022-05-26 erythrocyte [facility] Pending 00:00:00 sedimentation rate by Sports Medicine westergren method [code = erythrocyte sedimentation rate by westergren method] Diagnostic Test 2022-05-26 C-reactive protein, [facility] Pending 00:00:00 quantitative [code = Sports Medicine C-reactive protein, quantitative] Diagnostic Test 2022-05-26 unlisted lab [code = [facility] Pending 00:00:00 unlisted lab] Sports Medicin e Diagnostic Test 2022-05-26 CBC [code = CBC] [facility] Pending 00:00:00 Sports Medicine Diagnostic Test 2022-05-26 CMP, serum or plasma [facility] Pending 00:00:00 [code = CMP, serum or Sports Medicine plasma] Diagnostic Test 2022-05-26 HLA-B27 related Ag [facility] Pending 00:00:00 [code = HLA-B27 Sports Medic ine related Ag] Future Scheduled Test 2019 Screening for [facility] 00:00:00 malignant neoplasm of cervix (procedure) [code = 157667724] Future Scheduled Test 2010 Screening for [facility] 00:00:00 malignant neoplasm of cervix (procedure) [code = 366110980] Future Scheduled Test 1990-02-09 COVID-19 Vaccine (#1) [facility] 00:00:00 [code = COVID-19 Vaccine (#1)] Instructions [facility] Encounters Start End Encounter Admission Attending Care Care Encounter Source Date/Time Date/Time Type Type Clinicians Facility Department ID 2021-08-09 Inpatient REGAN Hector [id number] [facility] 21:30:00 Nik [facility] 2023-10-10 2023-10-10 Outpatient VALENTINA COLÓN [id number] Valentina 10:00:00 10:00:00 MARGA Seybol d 2023-09-28 2023-09-28 Outpatient VALENTINA COLÓN [id number] Valentina 00:00:00 00:00:00 MARGA Seybol d 2023-09-28 2023-09-28 Outpatient VALENTINA CHESTER [id number] Valentina 00:00:00 00:00:00 MIKY Seybol d 2023-08-09 2023-08-09 Outpatient VALENTINA HECK [id number] Valentina 00:00:00 00:00:00 TOOTIE Seybo ld 2023-08-09 2023-08-09 Outpatient VALENTINA FABIAN [id number] Valentina 00:00:00 00:00:00 MILINDA Seybol d 2023-08-09 2023-08-09 Outpatient VALENTINA COLÓN [id number] Valentina 00:00:00 00:00:00 MARGA Seybol d 2023-08-05 2023-08-05 Outpatient VALENTINA FBAIAN [id number] Valentina 00:00:00 00:00:00 MILINDA Seybol d 2023-07-10 2023-07-10 Outpatient LAB90 VALENTINA BARBA [id number] Valentina 14:50:00 14:50:00 Seybol d 2023-07-10 2023-07-10 Outpatient VALENTINA COLÓN [id number] Valentina 14:00:00 14:00:00 MARGA Seybol d 2023-06-12 2023-06-12 Outpatient VALENTINA HECK [id number] Valentina 00:00:00 00:00:00 TOOTIE Seybo ld 2023-06-12 2023-06-12 Outpatient VALENTINA FABIAN [id number] Valentina 00:00:00 00:00:00 MILINDA Seybol d 2023-06-12 2023-06-12 Outpatient KATARZYNA VALENTINA BARBA [id number] Valentina 00:00:00 00:00:00 MARGA Seybol d 2023-06-02 2023-06-02 Outpatient SYEDA VALENTINA BARBA [id number] Valentina 10:10:00 10:10:00 ANGEL Seybol d 2023-05-25 2023-05-25 Outpatient [facility] VALENTINA BARBA [id number] Valentina 14:15:00 14:15:00 TY CR Se schneider 2023-05-24 2023-05-24 Outpatient VALENTINA ESNA [id number] Valentina 09:10:00 09:10:00 TATIANA Seyb old 2023-05-22 2023-05-22 Outpatient VALENTINA SENA [id number] Valentina 00:00:00 00:00:00 TATIANA Seyb old 2023-05-19 2023-05-20 Emergency Vasut, [facility] [id number] Univers 20:59:00 00:19:00 Pranav OTOOLE [id number] i ty [facility] [id number] [facility] [id number] 2023-05-19 2023-05-20 Emergency X VASUT, [facility] ERT [id number] Univers 20:59:00 00:19:00 PRANAV sexton [facility] 2023-05-19 2023-05-19 Outpatient VALENTINA DALEY [id number] Valentina 15:15:00 15:15:00 JARON Seybol d 2023-05-19 2023-05-19 Outpatient GILBERT BARBA [id number] Valentina 00:00:00 00:00:00 MD REILLY Seybol d 2023-05-14 2023-05-14 Outpatient FOG_Jones_H AOSM AOSM [id number] Ruth 00:00:00 00:00:00 Arlene [id number] Orthop e dic Sports Medicin e 2023-05-12 2023-05-12 Outpatient FOG_Jones_H AOSM AOSM [id number] Ruth 00:00:00 00:00:00 Arlene [id number] Orthop e dic Sports Medicin e 2023-05-09 2023-05-09 Outpatient VALENTINA COLÓN [id number] Valentina 00:00:00 00:00:00 MARGA Seybol d 2023-05-08 2023-05-08 Outpatient VALENTINA COLÓN [id number] Valentina 00:00:00 00:00:00 MARGA Seybol d 2023-04-19 2023-04-19 Outpatient GILBERT BARBA [id number] Valentina 00:00:00 00:00:00 MD REILLY Seybol d 2023-04-18 2023-04-18 Outpatient VALENTINA FABIAN [id number] Vlaentina 00:00:00 00:00:00 MILINDA Seybol d 2023-04-17 2023-04-17 Outpatient VALENTINA CHESTER [id number] Valentina 00:00:00 00:00:00 MIKY Seybol d 2023-04-11 2023-04-11 Outpatient VALENTINA COLÓN [id number] Valentina 14:15:00 14:15:00 MARGA Seybol d 2023-04-11 2023-04-11 Outpatient VALENTINA HECK [id number] Valent[place] 11:15:00 11:15:00 TOOTIE Seybo ld 2023-04-11 2023-04-11 Outpatient VALENTINA COLÓN [id number] Valentina 10:30:00 10:30:00 MARGA Seybol d 2023-04-11 2023-04-11 Outpatient VALENTINA CHESTER [id number] Valentina 00:00:00 00:00:00 MIKY Seybol d 2023-04-09 2023-04-09 Outpatient FOG_Jones_H AOSM AOSM [id number] Ruth 00:00:00 00:00:00 Arlene [id number] [facility] 2023-03-27 2023-03-27 Outpatient NEMOVALENTINA [id number] Valentina 11:45:00 11:45:00 MIKY Seybol d 2023-03-27 2023-03-27 Outpatient FABIANVALENTINA [id number] Valentina 11:30:00 11:30:00 MILINDA Seybol d 2023-03-22 2023-03-22 Outpatient VALENTINA NATH [id number] Valentina 11:00:00 11:00:00 LUCY Seybol d 2023-03-06 2023-03-06 Outpatient FOG_Jones_H AOSM AOSM [id number] Ruth 00:00:00 00:00:00 Arlene [id number] [facility] 2023-03-02 2023-03-02 Outpatient VALENTINA LOBO [id number] Valentina 16:00:00 16:00:00 VIDEOVISITN ybold OW 2023-03-02 2023-03-02 Outpatient VALENTINA KWAN [id number] Valentina 15:15:00 15:15:00 GUY Seybol d 2023-03-02 2023-03-02 Outpatient VALENTINA HECK [id number] Valentina 00:00:00 00:00:00 TOOTIE Seybo ld 2023-03-02 2023-03-02 Outpatient VALENTINA HECK [id number] Valentina 00:00:00 00:00:00 TOOTIE Seybo ld 2023-03-02 2023-03-02 Outpatient VALENTINA HECK [id number] Valentina 00:00:00 00:00:00 TOOTIE Seybo ld 2023-02-20 2023-02-20 Outpatient VALENTINA HECK [id number] Valentina 00:00:00 00:00:00 TOOTIE Seybo ld 2023-02-20 2023-02-20 Outpatient VALENTINA HECK [id number] Valentina 00:00:00 00:00:00 TOOTIE Seybo ld 2023-02-01 2023-02-01 Outpatient SOCO, VALENTINA BARBA [id number] Valentina 14:20:00 14:20:00 JOSE ANGEL Seybol d 2023-01-27 2023-01-27 Outpatient THUY VALENTINA BARBA [id number] Valentina 11:00:00 11:00:00 JARON Seybol d 2023-01-10 2023-01-10 Outpatient LAB47 VALENTINA BARBA [id number] Valentina 16:20:00 16:20:00 Seybol d 2023-01-10 2023-01-10 Outpatient UMANG VALENTINA BARBA [id number] Valentina 15:30:00 15:30:00 TOOTIE Seybo ld 2023-01-02 2023-01-02 Outpatient VALENTINA MAGANA [id number] Valentina 09:45:00 09:45:00 RYAN Seybol d 2022-12-30 2022-12-30 Outpatient VALENTINA COLÓN [id number] Valentina 00:00:00 00:00:00 MARGA Seybol d 2022-12-29 2022-12-29 Outpatient KATARZYNA VALENTINA BARBA [id number] Valentina 00:00:00 00:00:00 MARGA Seybol d 2022-12-28 2022-12-28 Outpatient LAB90 VALENTINA BARBA [id number] Valentina 10:40:00 10:40:00 Seybol d 2022-12-28 2022-12-28 Outpatient VALENTINA COLÓN [id number] Valentina 09:15:00 09:15:00 MARGA Seybol d 2022-05-26 2022-05-26 Outpatient FOG_Jones_H AOSM AOSM [id number] Ruth 03:58:00 03:58:00 Arlene [id number] [facility] 2022-05-26 2022-05-26 Outpatient FOG_Jones_H AOSM AOSM 568 Ruth 03:58:00 03:58:00 Arlene [id number] [facility] 2022-05-26 2022-05-26 Outpatient FOG_Jones_H AOSM AOSM 568 Ruth 00:00:00 00:00:00 Arlene [id number] [facility] 2022-05-26 2022-05-26 Outpatient FOG_Jones_H AOSM AOSM [id number] Ruth 00:00:00 00:00:00 Arlene [id number] [facility] 2022-05-26 2022-05-26 Outpatient FOG_Jones_H AOSM AOSM [id number] Ruth 00:00:00 00:00:00 Arlene [id number] [facility] 2022-05-26 2022-05-26 Outpatient Silvano BRIAN AOSM [id number] 00:00:00 00:00:00 Margaret Willett [id number] 2022-05-26 2022-05-26 Margaret MCKENOSM [place] - Ortho [id number] Ruth 00:00:00 00:00:00 MD Silvano: Shabnam Restrepo - Orthope [address] F[address]_Ofc dic [facility], [place] [address] , Ph. [phone] 2022-05-24 2022-05-24 Outpatient EMILY Rodas HCATO PAIN [id number] [facility] 13:58:00 13:58:00 Nik Vickers [facility] 2022-05-24 2022-05-24 Outpatient FOG_Jones_H AOSM AOSM [id number] Ruth 05:37:00 05:37:00 Arlene [id number] [facility] 2022-05-24 2022-05-24 Outpatient FOG_Jones_H AOSM AOSM [id number] Ruth 05:37:00 05:37:00 Arlene [id number] [facility] 2022-05-24 2022-05-24 Outpatient Adrianna BRIAN MCKEONJANE [id number] 00:00:00 00:00:00 Nik Pierre [id number] 2022-05-24 2022-05-24 Nik Pierre AOSM [place] - Ortho [place] 00:00:00 00:00:00 Shabnam Rodas MD: [address] [facility]_[place] [facility]_OP [facility] [id number] , Ph. 2022-05-10 2022-05-10 Outpatient FOG_Jones_H AOSM AOSM [id number] Ruth 01:06:00 01:06:00 Arlene [id number] [facility] 2022-05-09 2022-05-09 Outpatient FOG_Jones_H AOSM AOSM [id number] Ruth 06:10:00 06:10:00 Arlene [id number] [facility] 2022-05-09 2022-05-09 Outpatient BRIAN Delaney AOSM [id number] 00:00:00 00:00:00 Conchita Willett [id number] 2022-05-09 2022-05-09 Conchita Willett AO [place] - Ortho 2021 [id number] Ruth 00:00:00 00:00:00 Shabnam Delaney PLANT CUSTODIAN: [address] FOG_Ofc dic [facility] [id number] , Ph. [phone] 2022-05-06 2022-05-06 Outpatient FOG_Jones_H AOSM AOSM [id number] Ruth 07:00:00 07:00:00 Arlene [id number] [facility] 2022-04-25 2022-04-25 Outpatient FOG_Luo_Ran AOSM AOSM 568 Ruth 04:50:00 04:50:00 Dann [id number] [facility] 2022-04-25 2022-04-25 Outpatient FOG_Luo_Ran AOSM AOSM 568 Ruth 04:50:00 04:50:00 Dann [id number] [facility]op [facility] 2021-06-10 2021-06-10 Inpatient Michael Whelan [facility] [id number] [facility] 07:14:00 07:14:00 [place] [facility] 2021-03-18 2021-03-20 Office Susi Vera [facility] E ncounter/ Legacy 00:00:00 00:00:00 Visit Cate Randle [id number] Tim nunezmuni [id number] Health 2021-01-20 2021-01-20 Office Carolyn [facility] Encounter/ Legacy 00:00:00 00:00:00 Visit Suha [id number] Co mmuni Gustavo [id number] Health 2020-11-06 2020-11-06 Office Patrick, [facility] Encounter / Legacy 00:00:00 00:00:00 Visit Maria M Trinidad [id number] Flower [id number] Health 2020-09-07 2020-09-[facility]00 00:00:00 Visit polly Milvia [id number] Co mmuni [id number] Health 2020-08-20 2020-08-20 [facility] 00:00:00 00:00:00 Visit polly Milvia [id number] Co mmuni [id number] [facility] 2017-12-27 2017-12-27 Outpatient [facility] [id number] [place] 14:08:26 14:08:26 Health 2017-11-10 2017-11-10 AppointALLAN Guevara [facility] [id number] [place] 08:30:00 08:30:00 t; KIMMIE STARKS, [facility] BURKS M.D. Wellness baldev [facility] 2017-08-23 2017-08-23 ALLAN Kasper [facility] [id number] [place] 16:30:00 16:30:00 t; KIMMIE STARKS, Cortney Pacheco M.D. 2017-07-31 2017-07-31 ALLAN Combs [facility] [id number] [place] 17:45:00 17:45:00 t; MAYTE LOPEZ Physi baldev MORTENSEN NP 2017-06-20 2017-06-20 ALLAN Longo [facility] [id number] [place] 14:30:00 14:30:00 t; JOSE RAUL, Physi Cortney Fournier M.D. 2017-06-14 2017-06-14 Appointmen CL, UTP UTP [id number] [place] 15:00:00 15:00:00 t; NADEEM SMALLWOOD, Ph bridget SILVER, [facility] ans [employer]PER[employer] 2017-06-12 2017-06-12 Appointmen PRIMOMO, UTP UTP [id number] [place] 15:30:00 15:30:00 t; Cortney RODRIGUEZ Phperlita villai JENSEN, ans Cortney RODRIGUEZ 2017-05-30 2017-05-30 Appointmen MORTENSEN, UTP UTP [id number] [place] 17:45:00 17:45:00 t; MAYTE LOPEZ Physi ci MORTENSEN, baldev LOPEZ NP 2017-05-17 2017-05-17 Appointmen TEREZA, UTP UTP [id number] [place] 16:30:00 16:30:00 t; KIMMIE STARKS, Cortney Hernandez M.D. 2017-05-03 2017-05-03 Appointmen TEREZA, UTP UTP [id number] [place] 15:30:00 15:30:00 t; KIMMIE STRAKS, Cortney Hernandez M.D. 2017-04-21 2017-04-21 Appointmen MORTENSEN, UTP UTP [id number] 51 [place] 15:00:00 15:00:00 t; MAYTE LOPEZ Physi ci MORTENSENbaldev NP 2017-03-28 2017-03-28 Appointmen DAVILA, UTP UTP [id number] [place] 13:00:00 13:00:00 t; Yuval SAMS i, M.D.|PHD baldev STALEY M.D.|PHD Results Test Description Test Time Test Comments Results Result [facility] e Comments - XR FLUORO FOR 2022-05-24 SPINE INJ 18:41:00 [facility] 1990 Sex: F Patient Name: JAYME BOWLES Unit No: [id number] EXAMS: CPT CODE: [id number] XR FLUORO FOR SPINE INJ 46149 DIAGNOSTIC SACROILIAC INJECTION REFERRAL PHYSICIAN: None PREOPERATIVE DIAGNOSIS: Sacroiliitis. POSTOPERATIVE DIAGNOSIS: Bilateral symptomatic degenerative sacroiliac joints PROCEDURES PERFORMED: Fluoroscopically guided needle localization of the bilateral sacroiliac joints with arthrograms and diagnostic injection of local anesthetic and steroid. FINDINGS: Moderate capsular degeneration was seen at each level with complete joint filling. Provocation was negative. Anesthetic response was positive with the patient noting relief of her low back pain. Preinjection VAS 7/10. Postinjection VAS 0/10. Steroid response pending follow-up. ESTIMATED BLOOD LOSS: Minimal ANESTHESIA: TIVA COMPLICATIONS: None. DETAILS OF PROCEDURE: After obtaining stable vital signs, informed consent and IV access, with no contraindications, the patient was taken to the fluoroscopy suite and placed in a prone position with all extremities padded and appropriate monitors placed. The patient was sterilely prepped and draped over the lumbosacral spine. Using fluoroscopic visualization, the insertion sites were marked for inferior approaches and using standard technique, 22 gauge needle was advanced into each joint capsule without paresthesias. Aspiration was negative. Isovue-300 contrast 0.5 mL was injected to produce each arthrogram. There were no signs of intravascular uptake. Bupivicaine 0.75% 1 mL with Lidocaine 4% 0.5 mL and triamcinolone 30 mg was injected incrementally with frequent negative aspirations at each joint. There were no signs of intravascular uptake. The patient's vital signs remained stable. The needles were removed and the patient was taken to the PACU in good condition. Electronically Signed: Nik Rodas M.D. Image: Image 1 Image: Image 2 Image: Image 3 at 1841 Reported and signed by: Nik Rodas M.D. [facility] NAME: JAYME BOWLES [address] PHYS: Nik Valenzuela MD [place] [address] : 1990 AGE: 31 SEX: F LOC: ALEXEY PHONE #: [phone] EXAM DATE: 05/24/2022 STATUS: [place] [facility] [place]: [phone] RAD #: D/C DT PAGE 1 Signed Report (CONTINUED) Patient Name: JAYME BOWLES Unit No: [id number] EXAMS: CPT CODE: [id number] XR FLUORO FOR SPINE INJ 34296 (Continued) CC: Technologist: Kamilla Barajas(R) Transcribed D/ (1840) [facility] NAME: JAYME BOWLES [address] PHYS: Nik Valenzuela MD [place] [address] : 1990 AGE: 31 SEX: F LOC: ALEXEY PHONE #: [phone] EXAM DATE: 05/24/2022 STATUS: [place] [facility] [place]: [phone] RAD #: D/C DT PAGE 2 Signed Report Patient Name: JAYME BOWLES Unit No: [id number] EXAMS: CPT CODE: [id number] XR FLUORO FOR SPINE INJ 10127 (Continued) Orig Print D/T: S: 05/24/2022 (1843) [facility] NAME: JAYME BOWLES [address] [facility] PHYS: Nik Valenzuela MD [place] [address] : 1990 AGE: 31 SEX: F LOC: ALEXEY PHONE #: [phone] EXAM DATE: 05/24/2022 STATUS: [place] [facility] [place] #: [phone] RAD #: D/C DT PAGE 3 Signed Report UR HCG QUAL 2022-05-24 14:42:00 Test Item Value Reference Range Interpretation Comme nts UR HCG QUAL (test code = HCGQLU) NEGATIVE NEGATIVE test, [id number] 14:25:00 Test Item Value Reference Range Interpretation Comments ur HCG qual (test code = ur HCG negative negative qual) performing lab: (test code = performing lab:) [facility] [id number] 14:25:00 Test Item Value Reference Range Interpretation Comments ur HCG qual (test code = ur HCG negative negative qual) performing lab: (test code = performing lab:) [facility] MRI L-SPINE W/O [id number] 10:43:00 [facility] : 1990 Sex: F Patient Name: JAYME BOWLES Unit No: [id number] EXAMS: CPT CODE: [id number] MRI L-SPINE W/O CONT 94169 MRI OF THELUMBAR SPINE: DIAGNOSIS: 1. At L1-2, there is no disc bulge or herniation. No central canal or foraminal stenosis. 2. At L2-3, no disc bulge or herniation. No central canal or foraminal stenosis. 3. At L3-4, disc desiccation. Mild central canal stenosis. Mild to moderate bilateral facet arthropathy. No foraminal stenosis. 4. At L4-5, disc desiccation. 2 mm posterior central disc bulge. Mild central canal stenosis. Mild facet arthropathy. No foraminal stenosis. 5. At L5-S1, disc desiccation. Mild central canal stenosis. Mild to moderate bilateral facet arthropathy. No foraminal stenosis. COMMENT: CO MPARISON: No prior exams available. Sagittal T1, T2 and STIR and axial T1 and T2-weighted sequences are obtained of the lumbar spine. The lumbar vertebrae are within normal limits in signal. The findings are as above. The conus is in the expected location. at 1043 Reported and signed by: Wild Patino MD CC: Michael Zuleta MD Technologist: Jenn Langley(R) Transcribed D/ (1043) [facility]: [facility] [address] [facility] PHYS: Michael Tee MD : 1990 AGE: 30 SEX: F [place] [address] LOC: Y.MRI PHONE #: [phone] EXAM DATE: 06/10/2021 STATUS: REG CLI FAX #: [phone] RAD #: D/C DT PAGE 1 Signed Report Patient Name: JAYME BOWLES Unit No: [id number] EXAMS: CPT CODE: [id number] MRI L-SPINE W/O CONT 57329 (Continued) Orig Print D/T: S: 06/10/2021 (1046) [facility] NAME: JAYME BOWLES [address] [facility] PHYS: Michael Tee MD : 1990 AGE: 30 SEX: F [place] [address] LOC: Y.MRI PHONE #: [phone] EXAM DATE: 06/10/2021 STATUS: REG CLI FAX #: [phone] RAD #: D/C DT PAGE 2 SignedReporttrichomonas vaginalis, urine 2021-03-18 16:06:00 Test Item Value Reference Range Interpretation Comments trichomonas vaginalis, urine (test Negative Negative code = 5813-1) [facility]"
--- NOTE | 2023-10-04 13:01 | RAD REPORT ---
EXAM DESCRIPTION: RAD - Chest Single View - 10/04/2023 12:51 pm CLINICAL HISTORY: CHEST PAIN COMPARISON: <Comparisons> FINDINGS: Lines: None. Lungs: No evidence of edema or pneumonia. Pleural: No significant pleural effusions or pneumothorax. Cardiac: The heart size is within normal limits. Mediastinum: Within normal limits. Bones: No acute fractures. Other: None IMPRESSION: No acute cardiopulmonary disease.
[2023-10-04 13:41] LABS: Absolute Lymphocytes (CBC) 2.4 K/uL (0.7-4.9); Hematocrit 44.2 % (36.0-45.0); Lymphocytes % 24.1 % (15.3-44.8); MCV 83.4 fL (80-100); MPV 7.6 fL (7.6-11.3); Platelets 280 thou/uL (152-406); RBC Red Blood Cell Count 5.29 M/uL (3.86-4.86)
[2023-10-04 13:58] LABS: Albumin 3.4 g/dL (3.4-5.0); Bilirubin Total 0.8 mg/dL (0.2-1.0); Potassium 3.2 mEq/L (3.5-5.1); Protein, Total 7.7 g/dL (6.4-8.2)
[2023-10-04] MEDS ORDERED: DIPHENHYDRAMINE 50 MG/ML VIAL ONE (14:00)
--- NOTE | 2023-10-04 14:56 | ER ---
Nurse's Notes [facility] Name: Rhea Bowles Age: 33 yrs Sex: Female : 1990 Arrival Date: 10/04/2023 Time: 12:19 Bed 11 Private MD: Diagnosis: Hypokalemia;Headache Presentation: 10/04 12:35 Chief complaint: Patient states: "I checked my BP at home and it was 180s. My doctor mb9 told me to come to the ER. I have a headache, vertigo, chest pain, and hard time breathing". Coronavirus screen: At this time, the client does not indicate any symptoms associated with coronavirus-19. Ebola Screen: No symptoms or risks identified at this time. Initial Sepsis Screen: Does the patient meet any 2 criteria? No. Patient's initial sepsis screen is negative. Does the patient have a suspected source of infection? No. Patient's initial sepsis screen is negative. Risk Assessment: Do you want to hurt yourself or someone else? Patient reports no desire to harm self or others. Onset of symptoms was October 04, 2023. 12:35 Method Of Arrival: Wheelchair 9 12:35 Acuity: JEFFERSON 3 mb9 Triage Assessment: 12:39 General: Appears uncomfortable, Behavior is anxious, crying. Pain: Complains of pain in mb9 chest. EENT: No signs and/or symptoms were reported regarding the EENT system. Neuro: Ray Agitation-Sedation Scale (RASS): 0 - Alert and Calm Level of Consciousness is awake, alert, obeys commands, Oriented to person, place, time, situation, Appropriate for age. Cardiovascular: Reports chest pain, shortness of breath. Respiratory: Reports shortness of breath Airway is patent Respiratory effort is even, unlabored, Respiratory pattern is regular, symmetrical. GI: Reports nausea. : No signs and/or symptoms were reported regarding the genitourinary system. Derm: Skin is pink, warm \\T\\ dry. Musculoskeletal: Range of motion: intact in all extremities. 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 - Social history:: Smoking status: Patient denies any tobacco usage or history of. Screenin:12 [facility] ED Fall Risk Assessment (Adult) History of falling in the last 3 months, me1 including since admission No falls in past 3 months (0 pts) Confusion or Disorientation No (0 pts) Intoxicated or Sedated No (0 pts) Impaired Gait No (0 pts) Mobility Assist Device Used No (0 pt) Altered Elimination No (0 pt) Score/Fall Risk Level 0 - 2 = Low Risk. Abuse screen: Denies threats or abuse. Nutritional screening: No deficits noted. Tuberculosis screening: No symptoms or risk factors identified. Assessment: 14:12 General: See triage assessment. . me1 Vital Signs: 12:35 BP 161 / 112; Pulse 97; Resp 18; Temp 97.8; Pulse Ox 100% on R/A; Weight 87.09 kg; mb9 Height 5 ft. 5 in. ; Pain 10/10; 14:00 BP 130 / 101; Pulse 71; Resp 16; Pulse Ox 100% on R/A; me1 15:18 BP 157 / 100; Pulse 71; Resp 18; Pulse Ox 100% on R/A; me1 12:35 Body Mass Index 31.95 (87.09 kg, 165.1 cm) mb9 12:35 Pain Scale: Adult mb9 ED Course: 12:26 Patient arrived in ED. mg5 12:27 Victoriano Sung MD is Attending Physician. ec2 12:35 Arm band placed on. mb9 12:37 Triage completed. mb9 12:52 CXR XRAY In Process Unspecified. EDMS 13:29 Troponin HS Sent. bc6 13:30 Test, Serum Sent. bc6 13:30 CMP Sent. bc6 13:30 CBC with Diff Sent. bc6 13:30 Inserted saline lock: 20 gauge in right antecubital area, using aseptic technique. bc6 Blood collected. 13:34 Patient placed in an exam room, on a stretcher. ll1 13:40 Josy Plasencia, BRADLEY is Primary Nurse. me1 14:12 Patient has correct armband on for positive identification. Bed in low position. Call me1 light in reach. Side rails up X 1. Provided Education on: POC. Verbalized understanding. . Client placed on continuous cardiac and pulse oximetry monitoring. NIBP monitoring applied. 14:12 No provider procedures requiring assistance completed. Flushed right antecubital. me1 Patient maintains SpO2 saturation greater than 95% on room air. 15:18 IV discontinued, intact, bleeding controlled, No redness/swelling at site. Pressure me1 dressing applied. Administered Medications: 14:00 Drug: NS 0.9% IV 1000 ml IV at 1 bolus Per protocol; 1000 mL bolus Route: IV; Rate: 1 me1 bolus; Site: right antecubital; 14:54 Follow up: IV Status: Completed infusion me1 14:00 Drug: metoCLOPramide IVP 10 mg IVP once; over 1 to 2 minutes Route: IVP; Site: right me1 antecubital; 14:54 Follow up: Response: No adverse reaction; Nausea is decreased me1 14:00 Drug: diphenhydrAMINE IVP 50 mg IVP once Route: IVP; Site: right antecubital; me1 14:54 Follow up: Response: No adverse reaction me1 14:59 Drug: Potassium Chloride PO 40 mEq PO once Route: PO; me1 15:11 Follow up: Response: No adverse reaction me1 15:11 Drug: Ondansetron Oral Disintegrating Tablet Oral Disintegrating Tablet 4 mg PO once me1 Route: PO; 15:23 Follow up: Response: No adverse reaction me1 Medication: 14:12 VIS not applicable for this client. me1 Outcome: 14:55 Discharge ordered by . ec2 15:18 Condition: stable me1 15:18 Discharge instructions given to patient, Instructed on discharge instructions, follow up and referral plans. Demonstrated understanding of instructions, follow-up care, 15:25 Patient left the ED. me1 Signatures: Dispatcher [employer] Nicholas Ascencio RN RN florentino1 Theodora Hill RN RN mb9 Ivett Rush6 Josy Plasencia RN RN me1 Tamar Dc mg5 Victoriano Sung MD MD ec2 Corrections: (The following items were deleted from the chart) 12:39 12:37 PSHx: Appendectomy; mb9 mb9
--- NOTE | 2023-10-04 14:56 | EDPHYS ---
Physician Documentation [facility] Name: Rhea Bowles Age: 33 yrs Sex: Female : 1990 Arrival Date: 10/04/2023 Time: 12:19 Bed 11 Private MD: ED Physician Victoriano Sung HPI: 10/04 12:40 This 33 yrs old Female presents to ER via Wheelchair with complaints of Chest ec2 Pain, High Blood Pressure. 12:40 Patient arrives today for multiple complaints. Patient reports that she has been ec2 experiencing some chest tightness, had noted that her blood pressure was elevated. Reports history of preeclampsia however this resolved after giving and is not on currently on any antihypertensives. Patient reports headache symptoms as well as some vertiginous symptoms as well as generalized weakness and general body numbness. 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 - Social history:: Smoking status: Patient denies any tobacco usage or history of. ROS: 12:40 Constitutional: as per hpi ec2 Exam: 12:40 Constitutional: GEN: NAD Head: atraumatic Eyes: EOMI Ears: External ears are ec2 normal. CV: regular rate LUNGS: no respiratory distress ABD: non-distended SKIN: no evidence of rashes MSK: no evidence of trauma NEURO: moves all extremities equally, cranial nerves II through XII intact, strength equal throughout, sensation intact Vital Signs: 12:35 BP 161 / 112; Pulse 97; Resp 18; Temp 97.8; Pulse Ox 100% on R/A; Weight 87.09 kg; mb9 Height 5 ft. 5 in. ; Pain 10/10; 14:00 BP 130 / 101; Pulse 71; Resp 16; Pulse Ox 100% on R/A; me1 15:18 BP 157 / 100; Pulse 71; Resp 18; Pulse Ox 100% on R/A; me1 12:35 Body Mass Index 31.95 (87.09 kg, 165.1 cm) mb9 12:35 Pain Scale: Adult mb9 MDM: 12:27 Patient medically screened. ec2 12:40 Data reviewed: vital signs. ED course: Patient arrives for multiple complaints. ec2 Examination remarkable for neuro intact individual is otherwise in no acute distress was noted be hypertensive. Will obtain a cardiac work-up, EKG, chest x-ray, lab work, treat the patient's symptoms and reassess the patient. Currently considering process such as ACS, electrolyte disturbances, low suspicion for intracranial brain bleed or stroke or vertebral artery pathology.. 14:02 ED course: EKG independently reviewed and interpreted by me, shows normal sinus rhythm, ec2 rate of 82, no acute ST segment elevations, nonconcerning intervals.. 14:03 ED course: CBC is reassuring. Metabolic profile with slight hypokalemia noted. Will ec2 supplement potassium. Troponin within normal ranges. Chest x-ray shows no acute intrathoracic process. . 14:54 ED course: On reassessment patient reports complete resolution of her symptoms after ec2 the interventions. I will discharge home have her follow with primary care doctor I instructed her on potassium supplementation.. 10/04 12:39 Order name: CBC with Diff; Complete Time: 14:03 ec2 10/04 12:39 Order name: CMP; Complete Time: 14:03 ec2 10/04 12:39 Order name: Test, Serum; Complete Time: 14:51 ec2 10/04 12:39 Order name: Troponin HS; Complete Time: 14:03 ec2 10/04 12:42 Order name: CXR XRAY; Complete Time: 14:03 ec2 10/04 12:39 Order name: EKG; Complete Time: 12:40 ec2 10/04 12:39 Order name: EKG - Nurse/Tech; Complete Time: 13:44 ec2 Administered Medications: 14:00 Drug: NS 0.9% IV 1000 ml IV at 1 bolus Per protocol; 1000 mL bolus Route: IV; Rate: 1 me1 bolus; Site: right antecubital; 14:54 Follow up: IV Status: Completed infusion me1 14:00 Drug: metoCLOPramide IVP 10 mg IVP once; over 1 to 2 minutes Route: IVP; Site: right me1 antecubital; 14:54 Follow up: Response: No adverse reaction; Nausea is decreased me1 14:00 Drug: diphenhydrAMINE IVP 50 mg IVP once Route: IVP; Site: right antecubital; me1 14:54 Follow up: Response: No adverse reaction me1 14:59 Drug: Potassium Chloride PO 40 mEq PO once Route: PO; me1 15:11 Follow up: Response: No adverse reaction me1 15:11 Drug: Ondansetron Oral Disintegrating Tablet Oral Disintegrating Tablet 4 mg PO once me1 Route: PO; 15:23 Follow up: Response: No adverse reaction me1 Disposition Summary: 10/04/23 14:55 Discharge Ordered Notes: Location: Home ec2 Condition: Stable ec2 Diagnosis - Hypokalemia ec2 - Headache ec2 Discharge Instructions: - Discharge Summary Sheet ec2 - Potassium Content of Foods ec2 - General Headache Without Cause ec2 Forms: - Work release form me1 - Medication Reconciliation Form ec2 - Thank You Letter ec2 - Antibiotic Education ec2 - Prescription Opioid Use ec2 - Patient Portal Instructions ec2 - Leadership Thank You Letter ec2 Signatures: Dispatcher [employer] Theodora Swenson RN RN mb9 Josy Plasencia RN RN me1 Victoriano Sung MD MD ec2 Corrections: (The following items were deleted from the chart) 12:39 12:37 PSHx: Appendectomy; chetan mb9
[2023-10-04] MEDS ORDERED: POTASSIUM CL SA 10 MEQ TAB PO ONE (15:11)
[2023-10-04] MEDS ORDERED: ONDANSETRON 4 MG (ODT) TAB ONE (15:24)
[2023-10-04 16:35] VITALS: TEMP 97.8; O2SAT 100
[2023-10-04 16:38] VITALS: BP 157/100
--- NOTE | 2023-10-04 17:38 | EKG ---
Test Date: 2023-10-04 Test Time: 13:40:16 Dev Technical Mgr: MARY GRACE MEASUREMENT RESULTS: Intervals: Rate: 82 MO: 124 QRSD: 96 QT: 404 QTc: 472 [place]: P: 15 MO: 124 QRS: 55 T: 92 INTERPRETIVE STATEMENTS: Normal sinus rhythm Normal ECG No previous ECG available for comparison Electronically Signed On 10-04-23 17:26:37 ADMINISTRATIVE TECH by Kieran Dasilva
== END 2023-10-04 15:25 | disposition home or self-care (01) ==
LOC: ER 12:19
DX: E87.6 Hypokalemia (principal); R51.9 Headache, unspecified; I10 Essential (primary) hypertension; F90.9 Attention-deficit hyperactivity disorder, unspecified type; Z88.5 Allergy status to narcotic agent
CPT/HCPCS: 96361; 93005; 85025; 36415; 84703; 84484; 80053; 71045; 96375; 96374; 99285; Q0162; J1200